=== PATIENT | male | born 1955 | race Caucasian/White ===

== ENCOUNTER 2017-12-23 08:57 | Emergency (ER) | payer OTHER, BC ==
[2017-12-23] MEDS ORDERED: LIDOCAINE HCL 1% MPF 30 SOL ONE (09:05)
[2017-12-23] MEDS ORDERED: BACITRACIN 500 U/GM OIN TOP ONE ×2 (09:50→10:30)
[2017-12-23 10:29] VITALS: BP 129/85; PULSE 96; RESP 18; TEMP 98.1; O2SAT 97
[2017-12-23] MEDS ORDERED: LIDOCAINE HCL 1% 50 MG/5 ML SOL INFIL ONE (10:29)
== END 2017-12-23 10:10 | disposition home or self-care (01) | DRG 605 ==
LOC: ED 08:57
DX: S41.112A Laceration without foreign body of left upper arm, initial encounter (principal); S61.215A Laceration without foreign body of left ring finger without damage to nail, initial encounter
CPT/HCPCS: 12002; 99284; A6402; A6446; A9270-GY; J2001